=== PATIENT | male | born 1965 | race Caucasian/White ===

== ENCOUNTER 2017-09-09 16:05 | Outpatient (CLI) | payer MEDICARE, OTHER | END 2017-09-09 23:59 | disposition home or self-care (01) | LOC: LAB 16:05 | PROVIDERS: ATTEND Internal Medicine Nephrology | DX: Z01.818 Encounter for other preprocedural examination (principal) | CPT/HCPCS: 71010-TC ==

== ENCOUNTER 2017-11-18 00:38 | Inpatient (IN) | payer MEDICARE, MEDICAID ==
[~2017-11-18] VITALS: Ht 182.9 cm; Wt 90.7 kg
--- NOTE | 2017-11-18 01:30 | NUR ---
TO BED 5 A 52 YO MALE PATIENT BIBRA FOR "LOW O2 SATS OF 88% ON ROOM AIR WITH MILD SOB AND COUGH/CONGESTION X 1 DAY. PLACED PATIENT ON O2 CANNULA AT 2LPM VIA NC, KEPT HOB ELEVATED. PLACED ON CARDIAC AND VS MONITORING. COMFORT MEASURES RENDERED.
--- NOTE | 2017-11-18 01:40 | NUR ---
STARTED A SALINE LOCK ON THE LFA G18, BLOOD DRAWN AND SENT TO LAB.
--- NOTE | 2017-11-18 01:50 | NUR ---
TITRATED O2 TO 5LPM VIA NC, PATIENT SATTING NOW AT 95-97%.
[2017-11-18] MEDS ORDERED: ALBUTEROL FS 2.5 MG/3 ML VIAL.NEB NEB ONE (02:00)
[2017-11-18 02:08] LABS: BASOPHILS % (AUTO) 0.3 % (0.0-2.0); EOSINOPHILS % (AUTO) 0.1 % (0.0-6.0); HEMATOCRIT 30 % (39-51); HEMOGLOBIN 10.6 g/dL (13.5-17.5); LYMPHOCYTES # (AUTO) 0.6 /CMM (0.8-4.8); LYMPHOCYTES % (AUTO) 13.8 % (20.0-44.0); MEAN CORPUSCULAR HEMOGLOBIN 32 PG (26.0-33.0); MEAN CORPUSCULAR HGB CONC 35 g/dl (31.0-36.0); MEAN CORPUSCULAR VOLUME 93 fL (80-96); MONOCYTES # (AUTO) 0.4 /CMM (0.1-1.30); MONOCYTES % (AUTO) 7.9 % (2.0-12.0); NEUTROPHILS # (AUTO) 3.6 /CMM (1.8-8.9); NEUTROPHILS % (AUTO) 77.9 % (43.0-81.0); PLATELET COUNT (AUTO) 83 /CMM (150-450); RED BLOOD CELL COUNT(AUTO) 3.28 MIL/uL (4.5-6.0); WHITE BLOOD COUNT (AUTO) 4.6 K/uL (4.3-11.0)
[2017-11-18] MEDS ORDERED: ALBUTEROL FS 2.5 MG/3 ML VIAL.NEB ONE (02:17)
--- NOTE | 2017-11-18 02:20 | NUR ---
ONGOING BREATHING TREATMENT BY RT CASSIDY.
[2017-11-18 02:22] LABS: CALCIUM, SERUM 7.7 mg/dL (8.5-10.1); CREATININE 6.4 mg/dL (0.6-1.3); POTASSIUM 5.8 mmol/L (3.5-5.1)
[2017-11-18 02:29] LABS: TROPONIN I 0.033 ng/mL (0.00-0.056)
[2017-11-18 02:31] LABS: LYMPHOCYTES % (MANUAL) 15 % (16-48); MONOCYTES % (MANUAL) 9 % (0-11.0); NEUTROPHILS % (MANUAL) 76 (42-76)
[2017-11-18] MEDS ORDERED: AZTREONAM 1 G in IV NS 0.9% 100 ML IV ONE ×2 (03:00→20:00)
[2017-11-18] MEDS ORDERED: LEVOFLOXACIN 750 MG /D5W 150ML PIGGYBACK IV ONE (03:00)
--- NOTE | 2017-11-18 03:10 | NUR ---
PERFORMED STRAIGHT CATH ON PATIENT ASEPTICALLY PER DR OMALLEY'S ORDER FOR URINE COLLECTION, DRAINED ABOUT 800 CC OF SULAIMAN COLORED CLOUDY URINE. SAMPLE SENT TO LAB.
[2017-11-18] MEDS ORDERED: AZTREONAM 1 G VIAL ONE (03:14)
[2017-11-18 03:43] LABS: APPEARANCE,URINE SL CLOUDY (CLEAR); BILIRUBIN,URINE NEGATIVE (NEGATIVE); BLOOD, URINE 3+ Ery/uL (NEGATIVE); COLOR,URINE YELLOW (YELLOW); KETONES,URINE NEGATIVE (NEGATIVE); LEUKOCYTE ESTERASE ,URINE 3+ (NEGATIVE); NITRITE, URINE NEGATIVE (NEGATIVE); PH,URINE 6.5 (5.0-8.0); PROTEIN,URINE 2+ mg/dl (NEGATIVE); UGLUCOSE NEGATIVE (NEGATIVE); UROBILINOGEN,URINE 0.2 EU/dL (0.2)
[2017-11-18 03:52] LABS: BACTERIA,URINE Many /HPF (None Seen); SQUAMOUS EPITHELIAL CELL,UR Few /HPF (None Seen); WBC,URINE TOO NUMEROUS TO COUN /HPF (0-3)
--- NOTE | 2017-11-18 03:52 | NUR ---
CALLED CERTIFIED NURSING ATTENDANT FOR TELE BED. WAS INFORMED TELE IS FULL.
[2017-11-18] MEDS ORDERED: Z GUARD REMEDY 2 OZ OINT TP PRN (04:00)
[2017-11-18] MEDS ORDERED: ZOLPIDEM TARTRATE 5 MG TABLET PO PRN (04:00)
[2017-11-18] MEDS ORDERED: SODIUM POLYSTYRENE SULFONATE 15 G/60 ML BOTTLE PO ONE (04:00)
[2017-11-18] MEDS ORDERED: ALBUTEROL FS 2.5 MG/0.5 ML VIAL.NEB NEB PRN (04:00)
[2017-11-18] MEDS ORDERED: ONDANSETRON HCL/PF 4 MG/2 ML VIAL IVP PRN (04:00)
[2017-11-18] MEDS ORDERED: MAG HYDROX/AL HYDROX/SIMETH 30 ML UDC PO PRN (04:00)
[2017-11-18] MEDS ORDERED: HYDROCODONE/APAP 10/325MG 1 EA TABLET PO PRN (04:00)
[2017-11-18] MEDS ORDERED: FUROSEMIDE 40 MG/4 ML VIAL IV ONE (04:00)
[2017-11-18] MEDS ORDERED: HYDROCODONE/APAP 5/325MG 1 EACH TABLET PO PRN (04:00)
[2017-11-18] MEDS ORDERED: MAGNESIUM HYDROXIDE 30 ML UDC PO PRN (04:00)
[2017-11-18] MEDS ORDERED: ACETAMINOPHEN 325 MG TABLET PO PRN (04:00)
[2017-11-18] MEDS ORDERED: LEVOFLOXACIN 750 MG /D5W 150ML 150 ML IV ONE (04:26)
[2017-11-18] MEDS ORDERED: FUROSEMIDE 40 MG/4 ML VIAL ONE (04:28)
[2017-11-18] MEDS ORDERED: hydrALAZINE HCL IV 20 MG VIAL ONE (05:31)
[2017-11-18] MEDS: hydrALAZINE HCL IV 20 MG VIAL IV PRN (05:35)
[2017-11-18] MEDS ORDERED: PRED5DRO16 RIGHTEYE (05:51)
[2017-11-18] MEDS ORDERED: LOPE2CAP40 PO (05:51)
[2017-11-18] MEDS ORDERED: GABA-532 PO (05:51)
[2017-11-18] MEDS ORDERED: CALC300T4 PO (05:51)
[2017-11-18] MEDS ORDERED: BISA-79 PO (05:51)
[2017-11-18] MEDS ORDERED: LISI10TA59 PO (05:51)
[2017-11-18] MEDS ORDERED: ZINC220T PO (05:51)
[2017-11-18] MEDS ORDERED: VENL75TA4 PO (05:51)
[2017-11-18] MEDS ORDERED: ASCO500C18 PO (05:51)
[2017-11-18] MEDS ORDERED: NA P133E RC (05:51)
[2017-11-18] MEDS ORDERED: NIFE60TA2 PO (05:51)
[2017-11-18] MEDS ORDERED: SODIUM POLYSTYRENE SULFONATE 15 G/60 ML BOTTLE ONE (06:21)
--- NOTE | 2017-11-18 06:37 | NUR ---
320-1 AFTER CHANGE OF SHIFT
--- NOTE | 2017-11-18 07:28 | NUR ---
REPORT GIVEN TO DARLEEN BEARD FOR RHETT.
--- NOTE | 2017-11-18 09:00 | NUR ---
Food tray served at
--- NOTE | 2017-11-18 12:15 | NUR ---
REPORT GIVEN TO EDITH BEARD FOR RHETT
[2017-11-18 13:00] VITALS: BP 161/110
--- NOTE | 2017-11-18 13:00 | NUR ---
RN NOTES: PATIENT AOX4. PATIENT ON TELE WITH SR. NONLABORED BREATHING NOTED ON 3L. PATIENT DENIES PAIN. IV SITE 18 GAUGE PATENT AND INTACT. SUBCLAVIAN DIALYSIS ACCESS DRESSING INTACT, NO DISLODGEMENT NOTED. PATIENT REFUSING SKIN ASSESSMENT WELL PICTURES. BENEFITS AND RISKS EXPLAINED. BED IN LOWEST LOCKED POSITION. CALL LIGHT WITHIN REACH.
[2017-11-18] MEDS ORDERED: hydrALAZINE HCL 25 MG TABLET PO PRN (15:00)
[2017-11-18] MEDS ORDERED: DOSE PER PHARMACY (MD SPECIFY MEDICATION) 1 EA XX PRN (15:00)
[2017-11-18] MEDS: NIFEdipine XL 60 MG TAB PO SCH (15:41)
[2017-11-18] MEDS ORDERED: AZTREONAM 1 G in IV NS 0.9% 100 ML IV SCH (17:30)
[2017-11-18] MEDS ORDERED: OSELTAMIVIR PHOSPHATE 75 MG CAPSULE PO SCH (17:30)
[2017-11-18] MEDS: OSELTAMIVIR PHOSPHATE 75 MG CAPSULE PO SCH (18:01)
--- NOTE | 2017-11-18 19:05 | NUR ---
MOTORCYCLE FABRICATOR NOTES: RECEIVED PT AND IS IN SEMI-ROBERTS'S POSITION. PT ON 3LPM VIA NC AND IS TOLERATING WELL. PT IS ON TELE MONITOR. NO S/S OF DISTRESS NOTED AT THIS TIME. CALL LIGHT WITHIN PT'S REACH. BED KEPT IN LOW, LOCKED POSITION, AND SIDE RAILS X 2UP. WILL CONTINUE TO MONITOR PT.
--- NOTE | 2017-11-18 19:20 | NUR ---
RN NOTES: PATIENT AOX4. PATIENT ON TELE WITH SR. NONLABORED BREATHING NOTED ON 3L. PATIENT DENIES PAIN. IV SITE 18 GAUGE PATENT AND INTACT. SUBCLAVIAN DIALYSIS ACCESS DRESSING INTACT, NO DISLODGEMENT NOTED. PATIENT REFUSING SKIN ASSESSMENT WELL PICTURES. PATIENT REFUSED PRN BREATHING TREATMENT EARLIER STATING HE WANTS TO REST, BENEFITS AND RISKS EXPLAINED TO PATIENT. UPON ADMISSION, CONTACTED [facility] REGARDING ANTIBIOTICS TREATMENT, SPOKE WITH MAHSA ORELLANA. ANTIBIOTICS AND TAMIFLU ORDERED BY DR MILES. PATIENT WISHES TO BE FULL CODE, BENEFITS AND RISKS EXPLAINED. HE VERBALIZED UNDERSTANDING OF WANTING TO BE FULL CODE. BENEFITS AND RISKS EXPLAINED. BED IN LOWEST LOCKED POSITION. CALL LIGHT WITHIN REACH. ENDORSED TO NEXT SHIFT
--- NOTE | 2017-11-18 19:25 | NUR ---
SOCKET PULLER OPENING NOTES: RECEIVED PT AND IS AWAKE. PT IS A/OX3. PT ON 3LPM VIA NC AND IS TOLERATING WELL. PT HAS IV ON L FOREARM #18G AND IS PATENT AND INTACT. CURRENTLY S/L. PT ON TELE BOX. NO S/S OF DISTRESS NOTED AT THIS TIME. CALL LIGHT WITHIN PT'S REACH. BED KEPT IN LOW, LOCKED POSITION, AND SIDE RAILS X 2UP. PT ALSO HAS R SUBCLAVIAN MALIA CATH NOTED. WILL CONTINUE TO MONITOR PT.
[2017-11-18 20:00] VITALS: BP 136/77
[2017-11-18 20:36] VITALS: BP 136/77
[2017-11-18] MEDS: ALBUTEROL HALF STRENGTH 1.25 MG/3 ML VIAL.NEB NEB PRN (20:50)
[2017-11-19] VITALS: BP 128/67
[2017-11-19 04:00] VITALS: BP 125/59
[2017-11-19] MEDS: AZTREONAM 500 MG in IV NS 0.9% 50 ML IV SCH ×3 (04:01→21:02)
[2017-11-19 06:18] VITALS: BP 125/59
--- NOTE | 2017-11-19 07:25 | NUR ---
NANOELECTRONICS ENGINEER CLOSING NOTES: ALL NEEDS WERE ATTENDED AND ANTICIPATED FOR. PT REMAINS ON 3LPM VIA NC AND IS TOLERATING WELL. PT HAS IV ON L FOREARM #18G AND IS PATENT AND INTACT. CURRENTLY S/L. PT ON TELE BOX AND READING SHOWS SR 89. NO S/S OF DISTRESS NOTED AT THIS TIME. CALL LIGHT WITHIN PT'S REACH. BED KEPT IN LOW, LOCKED POSITION, AND SIDE RAILS X 2UP. PT ALSO HAS R SUBCLAVIAN MALIA CATH NOTED. WILL ENDORSE TO AM NURSE FOR RHETT.
[2017-11-19 08:00] VITALS: BP 149/96
--- NOTE | 2017-11-19 08:00 | NUR ---
MS RN RECEIVED ON BED, AWAKE,ALERT,ORIENTED X4,NOT IN ANY FORM OF DISTRESS,RESPIRATIONS EVEN AND UNLABORED,NO SOB NOTED,LUNGS ARE CLEAR, ABDOMEN SOFT,POSITIVE BOWEL SOUNDS,DENIES PAIN AT THIS TIME, WILL MONITOR PATIENT'S CONDITION.
[2017-11-19 08:02] LABS: EOSINOPHILS % (AUTO) 0.2 % (0.0-6.0); HEMATOCRIT 29 % (39-51); HEMOGLOBIN 9.8 g/dL (13.5-17.5); LYMPHOCYTES # (AUTO) 0.5 /CMM (0.8-4.8); LYMPHOCYTES % (AUTO) 7.3 % (20.0-44.0); MEAN CORPUSCULAR HEMOGLOBIN 32 PG (26.0-33.0); MEAN CORPUSCULAR HGB CONC 34 g/dl (31.0-36.0); MEAN CORPUSCULAR VOLUME 95 fL (80-96); MONOCYTES # (AUTO) 0.2 /CMM (0.1-1.30); MONOCYTES % (AUTO) 3.3 % (2.0-12.0); NEUTROPHILS # (AUTO) 6.4 /CMM (1.8-8.9); NEUTROPHILS % (AUTO) 89.2 % (43.0-81.0); PLATELET COUNT (AUTO) 76 /CMM (150-450); RED BLOOD CELL COUNT(AUTO) 3.03 MIL/uL (4.5-6.0); WHITE BLOOD COUNT (AUTO) 7.2 K/uL (4.3-11.0)
[2017-11-19 08:32] LABS: CALCIUM, SERUM 7.7 mg/dL (8.5-10.1); MAGNESIUM 2.1 mg/dL (1.8-2.4); PHOSPHORUS 6.3 mg/dL (2.5-4.9); POTASSIUM 5.9 mmol/L (3.5-5.1)
[2017-11-19] MEDS: NIFEdipine XL 60 MG TAB PO SCH (09:00)
[2017-11-19 09:06] LABS: BAND % (MANUAL) 7 % (0.0-5.0); LYMPHOCYTES % (MANUAL) 8 % (16-48); MONOCYTES % (MANUAL) 5 % (0-11.0); NEUTROPHILS % (MANUAL) 80 (42-76)
[2017-11-19] MEDS: OSELTAMIVIR PHOSPHATE 75 MG CAPSULE PO SCH (09:30)
--- NOTE | 2017-11-19 09:30 | NUR ---
MS KISHA BREAKFAST SERVED, DUE MEDS GIVEN,TOLERATED WELL, HELD B/P MEDS, PT WILL HAVE DIALYSIS TODAY.
[2017-11-19 16:00] VITALS: BP 150/83
--- NOTE | 2017-11-19 16:00 | NUR ---
MS DIETETICS DIRECTOR DONE W/ 2000ML OUTPUT.
--- NOTE | 2017-11-19 18:24 | NUR ---
MS RN ON BED, NO CHANGE OF CONDITION.
[2017-11-19 20:00] VITALS: BP 164/100
--- NOTE | 2017-11-19 21:03 | NUR ---
RN NOTES REFUSED HYDRALAZINE 25 MG PO PRN BP 162/98 82, EXPLAINED TO PATIENT RISKS AND BENEFITS OF RUNNING BP HIGH, PT STILL REFUSED
[2017-11-19] MEDS: ALBUTEROL HALF STRENGTH 1.25 MG/3 ML VIAL.NEB NEB PRN (23:41)
[2017-11-19] MEDS: IPRATROPIUM NEB FS 0.5 MG/2.5 ML AMPUL.NEB NEB PRN (23:41)
[2017-11-20] MEDS: AZTREONAM 500 MG in IV NS 0.9% 50 ML IV SCH ×3 (04:20→20:17)
--- NOTE | 2017-11-20 06:41 | NUR ---
PATIENT IN BED, ALERT AND AWAKE, NO SOB, NO DISTRESS, NO COMPLAIN OF PAIN, NO ADVERSE CHANGE OF CONDITION DURING SHIFT, REPOSITIONED FOR COMFORT, ON CONTACT ISOLATION, ALL DUE MEDICATIONS GIVEN, CALL LIGHT WITHIN REACH.
--- NOTE | 2017-11-20 07:30 | NUR ---
MS RN OPENING NOTES RECEIVED PATIENT IN STABLE CONDITION IN NO APPARENT DISTRESS. PATIENT IS RESTING IN BED. BEDSIDE RAILS ARE UP X 2. BED IS LOCKED AND LOWERED. WILL CONTINUE TO MONITOR.
[2017-11-20 08:00] VITALS: BP 159/99
[2017-11-20] MEDS: IPRATROPIUM NEB FS 0.5 MG/2.5 ML AMPUL.NEB NEB PRN ×4 (09:18→21:41)
[2017-11-20] MEDS: ALBUTEROL HALF STRENGTH 1.25 MG/3 ML VIAL.NEB NEB PRN ×2 (09:18→15:50)
[2017-11-20] MEDS: NIFEdipine XL 60 MG TAB PO SCH (09:27)
[2017-11-20] MEDS: OSELTAMIVIR PHOSPHATE 75 MG CAPSULE PO SCH (09:27)
[2017-11-20 16:00] VITALS: BP 150/90
--- NOTE | 2017-11-20 19:29 | NUR ---
MS RN CLOSING NOTES PATIENT IS RESTING IN BED. BEDSIDE RAILS ARE UP X 2. BED IS LOCKED AND LOWERED. WILL ENDORSE CARE TO ACUTE CARE NURSE NURSE FOR RHETT.
--- NOTE | 2017-11-20 19:45 | NUR ---
MS RN INITIALNOTES PT IS IN BED RESTING, A/O X4 ABLE TO MAKE NEEDS KNOWN. PT IS ON 3L NC, SATING AT 88%, SIMPLE MASK PLACED AND NOW SATING AT 95%. DENIES PAIN AT THIS TIME. IV ACCESS IS INTACT AND PATENT. PRN BREATHING TX NEEDED. BED IS IN LOW AND LOCKED POSITION, CALL LIGHT WITHIN REACH. WILL CONTINUE TO MONITOR PT.
[2017-11-20 21:53] VITALS: BP 124/74
--- NOTE | 2017-11-20 23:49 | NUR ---
ENDORSED PT TO TAMARA BEARD FOR RHETT. PT IS STABLE WITH NO ACUTE CHANGES
[2017-11-21] MEDS: IPRATROPIUM NEB FS 0.5 MG/2.5 ML AMPUL.NEB NEB PRN ×4 (00:34→15:53)
[2017-11-21] MEDS: ALBUTEROL HALF STRENGTH 1.25 MG/3 ML VIAL.NEB NEB PRN ×4 (00:35→15:53)
--- NOTE | 2017-11-21 02:54 | NUR ---
PT WAS ENDORSED BACK TO ME FOR RHETT
--- NOTE | 2017-11-21 03:00 | NUR ---
Patient c/o earlier that he had call and the light was not answered.I was going back and fort working on my admission and did not see any light,and the office secretary said she did not see any light.Patient needs got taken care off.
[2017-11-21] MEDS: AZTREONAM 500 MG in IV NS 0.9% 50 ML IV SCH ×3 (04:09→22:09)
--- NOTE | 2017-11-21 06:17 | NUR ---
MS RN CLOSING NOTES PT IS IN BED SLEEPING, EASILY AROUSED. BREATHING EVENLY AND UNLABORED ON NC. SCHEDULED FOR HEMODIALYSIS TODAY. ALL DUE MEDS GIVEN. ALL NEEDS WERE ANTICIPATED AND MET. BED IS IN LOW AND LOCKED POSITION, CALL LIGHT WITHIN REACH. WILL ENDORSE TO DAYSHIFT
[2017-11-21 08:00] VITALS: BP 151/96
--- NOTE | 2017-11-21 08:34 | NUR ---
MS RN OPENING NOTES. PT RECEIVED A&0X3 RESTING IN BED AND EASILY WOKEN. PT WITH O2 VIA NC 4L/PM AND SAO2 96%, PT REPORT SOB AND AUSCULTATED CONGESTED WITH RHONCHI, ESPECIALLY R SIDE. PRN RT ORDERED. PT WITH IVC G#18 AT L WRSIT INTACT AND SALINE FLUSH PATENT. PT REPORTING NO PAIN. PT FOR DIALYSIS TODAY. BED IN LOWEST LOCKED POSITION WITH HANDRAILSX2 AND CALL CERVANTES WITHIN REACH. PT BRIEFED ON TODAY'S POC AND IS WITHOUT CONCERN OR COMPLAINT AT THIS TIME.
[2017-11-21] MEDS: NIFEdipine XL 60 MG TAB PO SCH (09:00)
[2017-11-21] MEDS: OSELTAMIVIR PHOSPHATE 75 MG CAPSULE PO SCH (11:13)
[2017-11-21 11:30] LABS: EOSINOPHILS % (AUTO) 0.2 % (0.0-6.0); HEMATOCRIT 27 % (39-51); LYMPHOCYTES # (AUTO) 0.4 /CMM (0.8-4.8); LYMPHOCYTES % (AUTO) 4.9 % (20.0-44.0); MEAN CORPUSCULAR HEMOGLOBIN 32 PG (26.0-33.0); MEAN CORPUSCULAR HGB CONC 34 g/dl (31.0-36.0); MEAN CORPUSCULAR VOLUME 94 fL (80-96); MONOCYTES # (AUTO) 0.4 /CMM (0.1-1.30); MONOCYTES % (AUTO) 5.5 % (2.0-12.0); NEUTROPHILS # (AUTO) 7.2 /CMM (1.8-8.9); NEUTROPHILS % (AUTO) 89.4 % (43.0-81.0); PLATELET COUNT (AUTO) 82 /CMM (150-450); RED BLOOD CELL COUNT(AUTO) 2.82 MIL/uL (4.5-6.0)
[2017-11-21 11:45] LABS: CALCIUM, SERUM 7.6 mg/dL (8.5-10.1); CREATININE 6.5 mg/dL (0.6-1.3); POTASSIUM 5.2 mmol/L (3.5-5.1)
[2017-11-21 12:17] LABS: LYMPHOCYTES % (MANUAL) 7 % (16-48); MONOCYTES % (MANUAL) 7 % (0-11.0); NEUTROPHILS % (MANUAL) 86 (42-76)
[2017-11-21 16:00] VITALS: BP 153/93
--- NOTE | 2017-11-21 18:01 | NUR ---
MS RN OPENING NOTES. PT WITH DROPLET PRECAUTIONS R/T: INFLUENZA. PT A&0X3 RESTING WHILST EATING. PT WITH O2 VIA NC AT 3L/PM AND SAO2 94%, PT REPORTS SOME SOB. PT REPORTING NO PAIN. PT WAITING FOR DIALYSIS. PT WITH IVC G#18 AT L WRIST INTACT AND OPERATIONAL. BED IN LOWEST LOCKED POSITION WITH HANDRAILSX2 AND CALL CERVANTES WITHIN REACH. ALL DAY NURSE DUTIES ATTENDED TO, PT IS WITHOUT CONCERN OR COMPLAINT AT THIS TIME, WILL ENDORSE TO NIGHT NURSE.
--- NOTE | 2017-11-21 19:30 | NUR ---
Received patient in the bed.No unusual signs or symptoms observed or reported,no signs of discomfort or distress,receiving dialysis-no problems.
[2017-11-21 20:00] VITALS: BP 156/84
--- NOTE | 2017-11-21 20:00 | NUR ---
Dialysis completed,no problems.Patient states he wants to be left alone.
--- NOTE | 2017-11-21 23:00 | NUR ---
Resting quietly,no problems
[2017-11-22] MEDS: AZTREONAM 500 MG in IV NS 0.9% 50 ML IV SCH ×3 (05:59→21:48)
--- NOTE | 2017-11-22 07:38 | NUR ---
MS RN OPENING NOTES. PT WITH DROPLET PRECS R/T: INFLUENZA PT RECEIVED A&0X3 AWAKE AND RESTING IN BED. PT WITH O2 VIA NC AT 3LPM, REPORTING SOB AND LUNGS AUSCULTATED CONGESTED WITH RHONCHI. PT REQUESTING PRN RT, ORDER PLACED. PT WITH IVC AT L AC INTACT AND OPERATIONAL. PT REPORTING NO PAIN. PT WITH SOME JANET ORBITAL EDEMA NOTED, WILL INFORM MD. BED IN LOWEST LOCKED POSITION WITH HANDRAILSX3 AND CALL CERVANTES WITHIN REACH. PT BRIEFED ON TODAY'S POC AND IS WITHOUT CONCERN OR COMPLIANT AT THIS TIME.
[2017-11-22 08:00] VITALS: BP 180/110
[2017-11-22] MEDS: NIFEdipine XL 60 MG TAB PO SCH (08:16)
[2017-11-22] MEDS: OSELTAMIVIR PHOSPHATE 75 MG CAPSULE PO SCH (08:46)
[2017-11-22] MEDS ORDERED: VANCOMYCIN 500 MG in IV D5W 100 ML IV PRN (09:00)
[2017-11-22] MEDS ORDERED: VANCOMYCIN 1 GM in IV D5W 250 ML IV ONE (09:00)
[2017-11-22] MEDS ORDERED: FEE PK DOSING 1 MIN EA MC ONE (09:03)
[2017-11-22] MEDS: IPRATROPIUM NEB FS 0.5 MG/2.5 ML AMPUL.NEB NEB PRN (09:35)
[2017-11-22] MEDS: ALBUTEROL HALF STRENGTH 1.25 MG/3 ML VIAL.NEB NEB PRN (09:35)
[2017-11-22] MEDS: methylPREDNISolone SOD SUCC 125 MG/2ML VIAL IV SCH ×2 (12:55→17:38)
--- NOTE | 2017-11-22 13:00 | NUR ---
RN NOTES. DIALYSIS REMOVES 5.5L. PT BP REMAINS HIGH. PT REFUSING PRN BP MEDICATIONS, HE REPORTS HIS BP IS NORMALLY HIGH AFTER DIALYSIS LOWERS OVER AN HOUR OR TO. WILL CONTINE TO MONITOR.
--- NOTE | 2017-11-22 14:56 | NUR ---
RN NOTES. 0900 [facility] HELD R/T DIALYSIS THIS AM
[2017-11-22 16:00] VITALS: BP 121/65
--- NOTE | 2017-11-22 17:54 | NUR ---
MS RN CLOSING NOTES. PT WITH DROPLET PRECS R/T: INFLUENZA PT A&0X3 WATCHING T.V WITH DINNER. PT WITH O2 VIA SIMPLE MASK AT 4LPM, CURRENTLY NOT REPORTING SOB. PT WITH IVC AT L AC INTACT AND OPERATIONAL TKO. PT REPORTING NO PAIN. PT'S JANET ORBITAL EDEMA REMAINS BUT SIGNIFICANTLY LESS PRONOUNCED. BED IN LOWEST LOCKED POSITION WITH HANDRAILSX3 AND CALL CERVANTES WITHIN REACH. ALL DAY NURSE DUTIES ATTENDED TO, PT IS WITHOUT CONCERN OR COMPLIANT AT THIS TIME, WILL ENDORSE TO NIGHT NURSE.
--- NOTE | 2017-11-22 19:35 | NUR ---
MS RN OPENING NOTES RECEIVED PT AWAKE,ALERT,VERBALLY RESPONSIVE. ON SIMPLE MASK AT 4L/MIN,NO COMPLAIN OF SOB NOTED.RESPIRATIONS EVEN,UNLABORED.IV SITE LT AC INTACT,PATENT. DENIES ANY PAIN OR DISCOMFORT AT THIS TIME. KEPT CLEAN AND COMFORTABLE,BED IN LOWEST POSITION,LOCKED.CALL LIGHT WITHIN REACH.WILL CONTINUE TO MONITOR ACCORDINGLY.
[2017-11-22] MEDS: ALBUTEROL HALF STRENGTH 1.25 MG/3 ML VIAL.NEB NEB SCH ×2 (19:55→23:53)
[2017-11-22] MEDS: IPRATROPIUM NEB FS 0.5 MG/2.5 ML AMPUL.NEB NEB SCH ×2 (19:56→23:53)
[2017-11-22 20:37] VITALS: BP 118/69
[2017-11-22 22:00] VITALS: BP 118/69
[2017-11-22] MEDS: CEFEPIME 1 GM in IV D5W 50 ML IV SCH (22:01)
[2017-11-23] MEDS: IPRATROPIUM NEB FS 0.5 MG/2.5 ML AMPUL.NEB NEB SCH ×6 (03:52→23:30)
[2017-11-23] MEDS: ALBUTEROL HALF STRENGTH 1.25 MG/3 ML VIAL.NEB NEB SCH ×6 (03:52→23:30)
[2017-11-23] MEDS: AZTREONAM 500 MG in IV NS 0.9% 50 ML IV SCH ×2 (04:42→13:41)
--- NOTE | 2017-11-23 06:56 | NUR ---
MS RN NOTES PT IN BED ASLEEP, ON O2 VIA SIMPLE MASK AT 4L/MIN, NO RESPIRATORY DISTRESS NOTED, MONITORED CLOSELY. IV SITE PATENT. CALL LIGHT WITHIN REACH.NO S/SX OF PAIN OR DISCOMFORT NOTED WILL CONTINUE TO MONITOR ACCORDINGLY
--- NOTE | 2017-11-23 07:35 | NUR ---
RN OPENING NOTES RECEIVED PATIENT AWAKE,A/OX3,VERBALLY RESPONSIVE. ON SIMPLE MASK AT 4L/MIN,NO ACUTE DISTRESS, NO SOB NOTED. DENIES PAIN OR DISCOMFORT. IV SITE ON LEFT AC INTACT AND PATENT. KEPT CLEAN AND COMFORTABLE,BED IN LOWEST POSITION,LOCKED.CALL LIGHT WITHIN REACH. WILL CONTINUE TO MONITOR ACCORDINGLY.
[2017-11-23 07:58] VITALS: BP 118/74
[2017-11-23 08:00] VITALS: BP 118/74
[2017-11-23] MEDS: NIFEdipine XL 60 MG TAB PO SCH (08:26)
[2017-11-23] MEDS: OSELTAMIVIR PHOSPHATE 75 MG CAPSULE PO SCH (08:26)
[2017-11-23] MEDS: methylPREDNISolone SOD SUCC 125 MG/2ML VIAL IV SCH ×2 (08:27→16:46)
[2017-11-23 16:00] VITALS: BP 118/74
[2017-11-23] MEDS: LEVOFLOXACIN (250MG) 250 MG TABLET PO SCH (16:46)
--- NOTE | 2017-11-23 19:00 | NUR ---
RN NOTES UNABLE TO GET SPUTUM COLLECTION FOR RESP CULTURE. PATIENT UNABLE TO COUGH UP SPUTUM. PATIENT REFUSED RT TO COLLECT SPUTUM
--- NOTE | 2017-11-23 19:20 | NUR ---
RN CLOSING NOTES PATIENT IN BED RESTING. NO ACUTE DISTRESS, NO SOB NOTED. NO S/S OF PAIN OR DISCOMFORT. ALL NEEDS ATTENDED AND PROVIDED. BED IN LOCKED, LOW POSITION, CALL LIGHT IN REACH. ENDORSED TO NIGHT RN FOR RHETT.
--- NOTE | 2017-11-23 19:21 | NUR ---
RN NOTES RECEIVED PT AWAKE, HOB ELEVATED, DENIES ANY PAIN AND DISCOMFORT. DENIES NAUSEA AND VOMITING. BREATHING REGULAR AND UNLABORED. IV ACCESS ON LEFT FORE ARM PATENT AND INTACT. SAFETY MEASURE AND FALL PRECAUTION OBSERVED. PLAN OF CARE DISCUSSED WITH THE PT. WILL CONTINUE TO MONITOR PT.
[2017-11-23 20:00] VITALS: BP 131/76
[2017-11-23] MEDS: CEFEPIME 1 GM in IV D5W 50 ML IV SCH (20:45)
[2017-11-23 22:00] VITALS: BP 131/76
[2017-11-24] MEDS: ALBUTEROL HALF STRENGTH 1.25 MG/3 ML VIAL.NEB NEB SCH ×6 (03:28→23:31)
[2017-11-24] MEDS: IPRATROPIUM NEB FS 0.5 MG/2.5 ML AMPUL.NEB NEB SCH ×6 (03:28→23:31)
--- NOTE | 2017-11-24 07:20 | NUR ---
RN OPENING NOTES RECEIVED PATIENT AWAKE,A/OX3,VERBALLY RESPONSIVE. NO ACUTE DISTRESS, NO SOB NOTED. DENIES PAIN OR DISCOMFORT. IV SITE INTACT AND PATENT. KEPT CLEAN AND COMFORTABLE. BED IN LOWEST POSITION,LOCKED.CALL LIGHT WITHIN REACH. WILL CONTINUE TO MONITOR ACCORDINGLY.
--- NOTE | 2017-11-24 07:30 | NUR ---
RN NOTES PT SLEEP WELL OVERNIGHT. VITAL SIGNS STABLE, AFEBRILE. DENIES ANY PAIN AND DISCOMFORT. NO EPISODE OF NAUSEA AND VOMITING. KEPT CLEAN AND DRY, ALL NEEDS ATTENDED. WILL CONTINUE TO MONITOR PT.
[2017-11-24 08:00] VITALS: BP 170/80
--- NOTE | 2017-11-24 08:45 | NUR ---
RN NOTES PATIENT'S BP HIGH, REFUSING PRN BP MEDICATIONS. EDUCATION GIVEN BUT STILL REFUSED TO TAKE PRN BP MEDS.
[2017-11-24 09:36] LABS: ABG BASE EXCESS -3.2 mmol/L; ABG OXYGEN SATURATION 95.6 % (92.0-98.5); ABG PH 7.374 (7.350-7.450); ABG PO2 93.6 mmHg (75.0-100.0); AaDO2 90.1 mmHg; COHb 0.8 % (0.5-1.5); MetHb 0.2 % (0.0-1.5); O2Hb 94.6 % (94.0-97.0); SITE, ABG Right Radial; VENT MODE, BG N/C
[2017-11-24] MEDS: methylPREDNISolone SOD SUCC 125 MG/2ML VIAL IV SCH ×2 (09:37→17:42)
[2017-11-24] MEDS: OSELTAMIVIR PHOSPHATE 75 MG CAPSULE PO SCH (09:38)
[2017-11-24] MEDS: NIFEdipine XL 60 MG TAB PO SCH (09:39)
[2017-11-24 16:00] VITALS: BP 171/89
--- NOTE | 2017-11-24 16:00 | NUR ---
RN NOTES PATIENT'S BP HIGH, REFUSING PRN BP MEDICATIONS. EDUCATION GIVEN BUT STILL REFUSED TO TAKE PRN BP MEDS.
[2017-11-24] MEDS ORDERED: VANCOMYCIN 1 GM in IV D5W 250 ML IV ONE (17:00)
[2017-11-24] MEDS: LACTOBACILLUS RHAMNOSUS GG 1 EACH CAP.SPRINK PO SCH (17:42)
[2017-11-24] MEDS: LEVOFLOXACIN (250MG) 250 MG TABLET PO SCH (17:42)
--- NOTE | 2017-11-24 18:00 | NUR ---
RN NOTES DIALYSIS STARTED. WILL CONTINUE TO MONITOR ACCORDINGLY.
--- NOTE | 2017-11-24 19:28 | NUR ---
RN CLOSING NOTES PATIENT ON DIALYSIS. NO ACUTE DISTRESS, NO SOB NOTED. DENIES PAIN OR DISCOMFORT. ALL NEEDS ATTENDED AND PROVIDED. BED IN LOCKED, LOW POSITION, SIDERAILS UPX2. CALL LIGHT IN REACH. ENDORSED TO NIGHT RN FOR RHETT.
[2017-11-24 20:00] VITALS: BP_SYST 112; BP_SYST 150; BP_DIAS 52; BP_DIAS 79
[2017-11-24] MEDS: CEFEPIME 1 GM in IV D5W 50 ML IV SCH (21:16)
[2017-11-25] MEDS: IPRATROPIUM NEB FS 0.5 MG/2.5 ML AMPUL.NEB NEB SCH ×6 (03:30→23:56)
[2017-11-25] MEDS: ALBUTEROL HALF STRENGTH 1.25 MG/3 ML VIAL.NEB NEB SCH ×6 (03:30→23:56)
--- NOTE | 2017-11-25 03:35 | NUR ---
RT PT REQUESTED TO LET HIM SLEEP. NO SOB OR RESP DISTRESS NOTED AT THIS TIME.
--- NOTE | 2017-11-25 05:47 | NUR ---
RN CLOSING NOTES PATIENT IN BED RESTING. NO SOB. NO ACUTE DISTRESS. RESPIRATION EVEN AND UNLABORED. NO S/S OF PAIN OR DISCOMFORT AT THIS TIME. ALL NEEDS ATTENDED AND PROVIDED. BED IN LOCKED, LOW POSITION, CALL LIGHT WITHIN REACH. ENDORSED TO NEXT SHIFT NURSE FOR RHETT.
[2017-11-25] MEDS: NIFEdipine XL 60 MG TAB PO SCH (08:52)
[2017-11-25] MEDS: methylPREDNISolone SOD SUCC 125 MG/2ML VIAL IV SCH ×2 (08:55→17:01)
[2017-11-25] MEDS: LACTOBACILLUS RHAMNOSUS GG 1 EACH CAP.SPRINK PO SCH ×2 (08:55→17:00)
--- NOTE | 2017-11-25 09:00 | NUR ---
RN NOTES PATIENT ALERT AND ORIENTED X3, NO DISTRESS NOTED, DENIES PAIN OR DISCOMFORT, PER PATIENT I JUST WANT TO BE LEFT ALONE BECAUSE I WANT TO SLEEP. NEEDS ATTENDED AND MET, CALL LIGHT WITHIN REACH, WILL CONTINUE TO MONITOR.
[2017-11-25] MEDS: MENTHOL/CETYLPYRD (CEPACOL) 1 LOZ LOZENGE PO PRN ×2 (14:32→22:08)
[2017-11-25 16:00] VITALS: BP 197/128
[2017-11-25] MEDS: hydrALAZINE HCL IV 20 MG VIAL IV PRN (17:00)
[2017-11-25] MEDS: LEVOFLOXACIN (250MG) 250 MG TABLET PO SCH (17:00)
--- NOTE | 2017-11-25 17:00 | NUR ---
RN NOTES PATIENT'S BP NOTED TO BE 197/128, HR 95, O2SAT 87% IN ROOM AIR, PLACED ON 2LPM VIA NC WITH SPO2 INCREASED TO 95%. PATIENT IS C/O CHEST TIGHTNESS. PER PATIENT HE INFORMED DR. MILES AND DR. SOLIS. PATIENT IS GIVEN HYDRALAZINE IV FOR BP > 160. PATIENT IS PLACED ON TELE MONITOR WHICH SHOWS SR 95. NO ADVERSE EFFECT NOTED. WILL CONTINUE TO CLOSELY MONITOR THE PATIENT.
[2017-11-25] MEDS ORDERED: VANCOMYCIN 1 GM in IV D5W 250 ML IV ONE (17:10)
--- NOTE | 2017-11-25 17:44 | NUR ---
RN NOTES PATIENT'S BP IMPROVED TO 176/106 HR 95, ADMINISTERED NORCO FOR PAIN. PATIENT EATING DINNER AND TOLERATING WELL. NO S/SX OF RESPIRATORY DISTRESS. NEEDS ATTENDED AND MET, CALL LIGHT WITHIN REACH, WILL CONTINUE TO MONITOR.
--- NOTE | 2017-11-25 18:20 | NUR ---
RN NOTES PAGED DR. MILES AND RELAYED PATIENT'S CONDITION. LATEST BP IS 170/108 AT 1800. HR 95. SPO2 96% ON 2LPM VIA NC. INFORMED MD, AMBULANCE IS ON-CALL FOR DISCHARGE. RECEIVED NEW ORDERS FOR STAT EKG, STAT TROPONIN AND TO GIVE METOPROLOL 25MG PO ONCE NOW, AND TO START PATIENT METOPROLOL 25MG BID. PATIENT VERBALIZES, CHEST TIGHTNESS IS BETTER. AND DENIES SOB AT THIS TIME. WILL CONTINUE TO CLOSELY MONITOR PATIENT. CALLED RT AND INFORMED OF STAT EKG.
[2017-11-25] MEDS ORDERED: METOPROLOL TARTRATE 25 MG TABLET PO ONE (18:30)
--- NOTE | 2017-11-25 19:23 | NUR ---
RN NOTES PATIENT ALERT AND ORIENTED X3, NO DISTRESS NOTED, DENIES FEELING CHEST PAIN OR TIGHTNESS, NO SOB NOTED, ON ROOM AIR WITH SPO2 OF 91%, PATIENT TOLERATED DINNER, BP RECHECKED AND SHOWS 180/100, STILL WAITING FOR STAT EKG AND STAT TROPONIN, RT AND LABS AWARE OF STAT ORDERS. PATIENT ASSISTED WITH TURNING AND REPOSITION EVERY 2 HOURS, SKIN CARE RENDERED, ALL NEEDS ATTENDED AND MET, CALL LIGHT WITHIN REACH. ENDORSED TO ACCOUNT SUPPORT MANAGER RN, TO CALL DR. MILES ONCE RESULTS ARE BACK, AND AMBULANCE IS PLACED BALL ASSEMBLER.
--- NOTE | 2017-11-25 19:35 | NUR ---
IDENTIFICATION OFFICER INITIAL NOTES PT IS RESTING IN BED, A/O X4 ABLE TO MAKE NEEDS KNOWN. NO SIGNS OF SOB OR DISTRESS, BREATHING EVENLY AND UNLABORED. DENIES PAIN AT THIS TIME. BP WAS NOTED TO BE HIGH, MADE AWARE TO MD AWAITING STAT EKG AND TROPONIN LEVELS TO BE DRAWN. BP WAS PLANNED FOR D/C TODAY THEREFORE DIALYSIS WAS HELD AND TRANSFER WILL BE HELD DUE TO HIGH BP. BED IS IN LOW AND LOCKED POSITION, CALL LIGHT WITHIN REACH. WILL CONTINUE TO MONITOR PT
[2017-11-25 20:00] VITALS: BP 181/112
[2017-11-25] MEDS ORDERED: METOPROLOL TARTRATE 25 MG TABLET PO SCH (21:00)
[2017-11-25] MEDS: CEFEPIME 1 GM in IV D5W 50 ML IV SCH (21:22)
[2017-11-25] MEDS ORDERED: METOPROLOL TARTRATE 50 MG TABLET ONE (23:05)
[2017-11-25] MEDS: METOPROLOL TARTRATE 50 MG TABLET PO SCH (23:10)
[2017-11-26] VITALS: BP 186/117
[2017-11-26] MEDS: MENTHOL/CETYLPYRD (CEPACOL) 1 LOZ LOZENGE PO PRN ×3 (02:03→17:35)
[2017-11-26] MEDS: ALBUTEROL HALF STRENGTH 1.25 MG/3 ML VIAL.NEB NEB SCH ×5 (03:30→19:23)
[2017-11-26] MEDS: IPRATROPIUM NEB FS 0.5 MG/2.5 ML AMPUL.NEB NEB SCH ×5 (03:30→19:23)
[2017-11-26 04:00] VITALS: BP 182/118
[2017-11-26] MEDS: hydrALAZINE HCL IV 20 MG VIAL IV PRN ×2 (04:48→15:34)
--- NOTE | 2017-11-26 06:50 | NUR ---
YARDER ENGINEER NOTES RESULTS REPORTED TO MD MERINO, ORDERS FOR METOPROLOL DOSAGE ADJUSTMENT WITH FIRST DOSE NOW WAS ENTERED WAS HIGH BP. WILL CARRY OUT ORDERS. WILL CONTINUE TO MONITOR PT
--- NOTE | 2017-11-26 06:52 | NUR ---
TELE CLOSING NOTES PT IS IN BED RESTING. NO SIGNS OF SOB OR DISTRESS, BREATHING EVENLY AND UNLABORED. DENIES PAIN AT THIS TIME. CHARGE NURSE SPOKE WITH DIALYSIS NURSE DOWNSTAIRS TO ENDORSE THE NEED FOR HD. ALL NEEDS WERE ANTICIPATED AND MET. BED IS IN LOW AND LOCKED POSITION, CALL LIGHT WITHIN REACH. WILL ENDORSE TO DAYSHIFT.
--- NOTE | 2017-11-26 07:44 | NUR ---
MS RN: INITIAL NOTE RECEIVED PT A/OX3. ON MS. TELE OBSERVATION DUE TO HIGH BP. DIALYSIS TO BE DONE TODAY. USES DIAPER/ URINAL. ON REGULAR DIET. LFA #22 SL. NO IV FLUIDS. PATENT. R CHEST HD CATH. DRESSING INTACT. NO DISTRESS NOTED. ON 2L NC SATING T 95%. RESTING COMFORTABLY IN BED. CALL LIGHT WITHIN REACH. Addendum: 11/26/17 at 0747 by ASAF DE PAZ RN WRONG PATIENT
--- NOTE | 2017-11-26 07:48 | NUR ---
MS RN: INITIAL NOTE RECEIVED PT A/OX3. ON MS. TELE OBSERVATION DUE TO HIGH BP. DIALYSIS TO BE DONE TODAY. USES DIAPER/ URINAL. ON REGULAR DIET. LFA #22 SL. NO IV FLUIDS. PATENT. R CHEST HD CATH. DRESSING INTACT. NO DISTRESS NOTED. ON 2L NC SATING T 95%. RESTING COMFORTABLY IN BED. CALL LIGHT WITHIN REACH.
[2017-11-26 08:00] VITALS: BP 180/117
[2017-11-26] MEDS: LACTOBACILLUS RHAMNOSUS GG 1 EACH CAP.SPRINK PO SCH ×2 (08:40→16:54)
[2017-11-26] MEDS: methylPREDNISolone SOD SUCC 125 MG/2ML VIAL IV SCH ×2 (08:40→16:54)
--- NOTE | 2017-11-26 08:40 | NUR ---
[facility] DUE TO DIALYSIS BEING DONE.
--- NOTE | 2017-11-26 11:15 | NUR ---
PT NOT AVAILABLE FOR BREATHING TX.
[2017-11-26] MEDS: NIFEdipine XL 60 MG TAB PO SCH (11:19)
[2017-11-26] MEDS: METOPROLOL TARTRATE 50 MG TABLET PO SCH ×2 (11:20→21:42)
[2017-11-26] MEDS: hydrALAZINE HCL 25 MG TABLET PO SCH ×2 (11:20→18:00)
[2017-11-26] MEDS ORDERED: VANCOMYCIN 1 GM in IV D5W 250 ML IV ONE (11:30)
--- NOTE | 2017-11-26 12:22 | NUR ---
DIALYSIS DONE. OUTPUT 4L. BP 160/86, PULSE 82 POST HD. ADMINISTERED BLOOD PRESSURE MEDICATIONS ORDERED. MORNING BP MEDS ADMINISTERED.
--- NOTE | 2017-11-26 15:55 | NUR ---
INFORMED MD VALENCIA ABOUT HIGH BP OF 192/117. PT ASYMPTOMATIC. ADMINISTERED IV HYDRALAZINE PRN. NO NEW ORDERS. TO CONTINUE TO MONITOR. PT REFUSED TELE BOX FOR OBSERVATION.
[2017-11-26 16:00] VITALS: BP 111/64
[2017-11-26] MEDS: LEVOFLOXACIN (250MG) 250 MG TABLET PO SCH (16:54)
--- NOTE | 2017-11-26 16:58 | NUR ---
BP REDUCED TO 115/80. PULSE 70
--- NOTE | 2017-11-26 17:30 | NUR ---
CALLED [facility] 3 TIMES. AWAITED TO GIVE REPORT FOR OVER 20MINS. NO RESPONSE.
--- NOTE | 2017-11-26 18:34 | NUR ---
MS RN: CLOSING NOTE PT READY FOR DISCHARGE TO [facility]. D/C IN PLACE. AWAITING AMBULANCE TRANSFER. ALL DISCHARGE INFORMATION PRINTED AND SIGNED. BP STABLE. BP 122/80. WILL ENDORSE TO NEXT SHIFT. A/OX3. TOOK ALL MEDICATIONS ON TIME. NO ADVERSE REACTIONS NOTED. NO SOB NOTED. ON 2L NC SATING AT 96%. BEDREST. LFA #22 IV HL. NO IV FLUIDS RUNNING. R CHEST HD CATH IN PLACE AND DRESSING INTACT. HD DONE 11/26/17 4L TAKEN OUT. RESTING COMFORTABLY IN BED. CALL LIGHT WITHIN REACH.
--- NOTE | 2017-11-26 19:24 | NUR ---
RT PT REFUSE MEDS NO RESP DISTRESS Addendum: 11/26/17 at 1925 by BENJAMIN FAULKNER RT Amended: Links added.
--- NOTE | 2017-11-26 19:30 | NUR ---
ms rn opening notes Received pt alert,awake,verbally responsive,on o2 via n/c at 2 l/min, no sob,no apparent distress noted. denies any pain or discomfort at this time. Report given regarding discharge to [facility], spoke to Mracus. pt denies any pain or discomfort.Attended all needs.Awaiting for the ambulance.Will continue to monitor.
[2017-11-26 20:00] VITALS: BP 110/60
[2017-11-26] MEDS: CEFEPIME 1 GM in IV D5W 50 ML IV SCH (20:16)
[2017-11-26 21:42] VITALS: BP 138/80
--- NOTE | 2017-11-26 21:45 | NUR ---
MS REPORT MANAGER NOTES PT ALERT,AWAKE,VERBALLY RESPONSIVE, ON O2 VIA N/C AT 2L/MIN, NO SOB,NO APPARENT DISTRESS NOTED.DENIES ANY PAIN OR DISCOMFORT AT THIS TIME. DISCHARGE INSTRUCTIONS GIVEN TO THE AMBULANCE, REGARDING THE TRANSFER. PT LEFT THE HOSPITAL IN STABLE CONDITION,ACCOMPANIED BY TWO AMBULANCE PERSONNEL NO RESPIRATORY DISTRESS NOTED. ATTENDED ALL PT NEEDS.CHARGE NURSE NOTIFIED.
== END 2017-11-26 21:45 | DRG 177 ==
LOC: ER 00:41 → TRANSITION 08:47 → TELE 11:41 → MED 11-19 10:44
PROVIDERS: ADMIT Internal Medicine; ATTEND Internal Medicine
PROC: 5A1D70Z Performance of Urinary Filtration, Intermittent, Less than 6 Hours Per Day (ICD-10-PCS; principal; 2017-11-19)
PROC: 5A1D70Z Performance of Urinary Filtration, Intermittent, Less than 6 Hours Per Day (ICD-10-PCS; 2017-11-21)
PROC: 5A1D70Z Performance of Urinary Filtration, Intermittent, Less than 6 Hours Per Day (ICD-10-PCS; 2017-11-22)
PROC: 5A1D70Z Performance of Urinary Filtration, Intermittent, Less than 6 Hours Per Day (ICD-10-PCS; 2017-11-24)
PROC: 5A1D70Z Performance of Urinary Filtration, Intermittent, Less than 6 Hours Per Day (ICD-10-PCS; 2017-11-26)
DX: J15.6 Pneumonia due to other Gram-negative bacteria (principal); J96.01 Acute respiratory failure with hypoxia; I13.2 Hypertensive heart and chronic kidney disease with heart failure and with stage 5 chronic kidney disease, or end stage renal disease; N18.6 End stage renal disease; I27.20 Pulmonary hypertension, unspecified; E11.22 Type 2 diabetes mellitus with diabetic chronic kidney disease; I50.32 Chronic diastolic (congestive) heart failure; Z88.1 Allergy status to other antibiotic agents; Z88.0 Allergy status to penicillin; E87.5 Hyperkalemia; I25.10 Atherosclerotic heart disease of native coronary artery without angina pectoris; I34.0 Nonrheumatic mitral (valve) insufficiency; Z99.2 Dependence on renal dialysis; F32.9 Major depressive disorder, single episode, unspecified; D64.9 Anemia, unspecified; J10.08 Influenza due to other identified influenza virus with other specified pneumonia; L98.9 Disorder of the skin and subcutaneous tissue, unspecified; J98.01 Acute bronchospasm; J09.X1 Influenza due to identified novel influenza A virus with pneumonia; Z79.899 Other long term (current) drug therapy
CPT/HCPCS: 31720; 36415; 36600; 71045-TC; 71250-TC; 80048-TC; 80202-TC; 81000-TC; 82803-TC; 83605-TC; 83735-TC; 83880; 84100-TC; 84484-TC; 85025-TC; 87040-TC; 87081-TC; 87086-TC; 87186-TC; 87400; 90935-TC; 93307-TC; 94799-TC; A4216; A4606; J0360; J0692; J1940; J1956; J2405; J2930; J3370; J3490; J7030; J7050; J7060; Z7610

== ENCOUNTER 2018-11-04 17:10 | Inpatient (IN) | payer MEDICARE, MEDICAID ==
[~2018-11-04] VITALS: Ht 182.9 cm; Wt 70.1 kg
[~2018-11-04 17:10] MED LIST: ASCO500C18 PO; BISA-79 PO; CALC300T4 PO; GABA-532 PO; LISI10TA59 PO; LOPE2CAP40 PO; NA P133E RC; NIFE60TA2 PO; PRED5DRO16 RIGHTEYE; VENL75TA4 PO; ZINC220T PO
--- NOTE | 2018-11-04 19:20 | NUR ---
DISTRIBUTION LINEMANENTRY LEVEL SALES ASSOCIATE NOTES Patient came to unit from [facility] via gurney. Alert, oriented x 4. Breathing even and unlabored. Not in any distress. Patient denies any pain. V/S taken- all WNL, tolerating room air on 96%. As per patient, he has glaucoma and is legally blind on both eyes. He is wheelchair bound. Patient is diabetic but does not take insulin at home. Patient has IV line on L) forearm g#18, intact and patent. HD catheter on RCW. Patient is following a MWF HD schedule. Home meds updated as per [facility]'s record. As per patient, he wants to update it but needs his caregiver to bring in the list. Patient called the caregiver but did not answer, left a message to bring the list in the morning. Skin assessment done. Skin dryness, multiple scabs and sacral and perineal area redness noted. Pictures attached to chart. MRSA swab done. Patient denies smoking, drinking and recreational drug use. He had a flu shot September 2018. Safety measures in place. Call plasencia within reach. Bed in low, locked position. Will monitor accordingly
[2018-11-04 19:30] VITALS: BP 132/80
--- NOTE | 2018-11-04 19:30 | NUR ---
FLAT LOCK OPERATOR NOTES Patient on tele monitor, current reading SR 70
[2018-11-04] MEDS ORDERED: DEXTROSE 50%-WATER 50 ML DISP.SYRIN IV PRN (21:00)
[2018-11-04] MEDS ORDERED: MAGNESIUM HYDROXIDE 30 ML UDC PO PRN (21:00)
[2018-11-04] MEDS ORDERED: Z GUARD REMEDY 2 OZ OINT TP PRN (21:00)
[2018-11-04] MEDS ORDERED: BISACODYL (5 MG) 5 MG TABLET.DR PO PRN (21:00)
[2018-11-04] MEDS ORDERED: HYDROCODONE/APAP 5/325MG 1 EACH TABLET PO PRN (21:00)
[2018-11-04] MEDS ORDERED: INSULIN REGULAR, HUMAN 100 UNIT/ML 3 ML VIAL SQ PRN (21:00)
[2018-11-04] MEDS: prednisoLONE ACET 1% OPHT DROP 5 ML BOTTLE RIGHTEYE SCH (21:00)
[2018-11-04] MEDS ORDERED: *INSULIN REGULAR(HUMULIN R)HUM 100 UNIT/ML VIAL SQ PRN (21:00)
[2018-11-04] MEDS ORDERED: MAG HYDROX/AL HYDROX/SIMETH 30 ML UDC PO PRN (21:00)
[2018-11-04] MEDS ORDERED: ZOLPIDEM TARTRATE 5 MG TABLET PO PRN (21:00)
[2018-11-04] MEDS ORDERED: ACETAMINOPHEN 325 MG TABLET PO PRN (21:00)
[2018-11-04] MEDS ORDERED: ONDANSETRON HCL/PF 4 MG/2 ML VIAL IVP PRN (21:00)
[2018-11-04 21:37] LABS: BASOPHILS % (AUTO) 0.9 % (0.0-2.0); EOSINOPHILS % (AUTO) 0.8 % (0.0-6.0); HEMATOCRIT 37 % (39-51); HEMOGLOBIN 12.1 g/dL (13.5-17.5); LYMPHOCYTES # (AUTO) 1.3 /CMM (0.8-4.8); LYMPHOCYTES % (AUTO) 24.7 % (20.0-44.0); MEAN CORPUSCULAR HGB CONC 33 g/dl (31.0-36.0); MEAN CORPUSCULAR VOLUME 98 fL (80-96); MONOCYTES # (AUTO) 0.6 /CMM (0.1-1.30); MONOCYTES % (AUTO) 10.8 % (2.0-12.0); NEUTROPHILS # (AUTO) 3.3 /CMM (1.8-8.9); NEUTROPHILS % (AUTO) 62.8 % (43.0-81.0); PLATELET COUNT (AUTO) 121 /CMM (150-450); RED BLOOD CELL COUNT(AUTO) 3.77 MIL/uL (4.5-6.0); WHITE BLOOD COUNT (AUTO) 5.3 K/uL (4.3-11.0)
[2018-11-04] MEDS: BLOOD SUGAR DIAGNOSTIC 1 EACH STRIP VI SCH (21:46)
[2018-11-04 21:52] LABS: ALBUMIN 2.8 g/dL (3.4-5.0); BILIRUBIN,TOTAL 0.6 mg/dL (0.2-1.0); CALCIUM, SERUM 7.5 mg/dL (8.5-10.1); CREATININE 3.8 mg/dL (0.6-1.3); MAGNESIUM 1.9 mg/dL (1.8-2.4); PHOSPHORUS 5.1 mg/dL (2.5-4.9); TOTAL PROTEIN, SERUM 5.5 g/dL (6.4-8.2)
[2018-11-04 22:00] LABS: THYROID STIMULATING HORMONE 2.392 uIU/mL (0.358-3.74)
[2018-11-04] MEDS ORDERED: HYDR100T27 PO (23:20)
[2018-11-04] MEDS ORDERED: ESCI20TA PO (23:20)
[2018-11-04] MEDS ORDERED: CLON0.1T14 PO (23:20)
[2018-11-04] MEDS ORDERED: TIZA4TAB4 PO (23:20)
[2018-11-04] MEDS ORDERED: MECL-102 PO (23:20)
[2018-11-05] VITALS (7 sets, daily range): BP systolic 93–172; BP diastolic 58–103
--- NOTE | 2018-11-05 02:43 | NUR ---
REFINERY PROCESS ENGINEER NOTES: RECEIVED PT FROM RN, RAEANN. PT ASLEEP AT THIS TIME. IV REMAINS INTACT. PT ALSO HAS HD CATH ON RCW AND IS INTACT. PT IS A/OX4. NO PAIN VERBALIZED. NO SOB NOTED. NO S/S OF DISTRESS. PT ON ROOM AIR AND TOLERATING WELL. PT LEGALLY BLIND WELL. PT ON TELE BOX AND READING SHOWS SR 68. BED ALARM ACTIVATED. BED KEPT IN LOW, LOCKED POSITION, AND SIDE RAILS X 2UP. AT THIS TIME, PT WOULD JUST LIKE HIS DOOR SHUT AND WOULD LIKE TO SLEEP. WILL CONTINUE TO MONITOR PT.
--- NOTE | 2018-11-05 02:55 | NUR ---
RN NOTES Patient in bed, sleeping. Breathing even and unlabored. . Not in any distress. Tele monitor in place, sinus rhythm 69. Safety measures in place. Endorsed to KISHA Hawkins for continuity of care
[2018-11-05] MEDS ORDERED: MECLIZINE HCL 25 MG TABLET PO PRN (04:00)
--- NOTE | 2018-11-05 06:07 | NUR ---
RN NOTES ACCUCHECK BG 71. NO ACTION NEEDED AT THIS TIME.
[2018-11-05] MEDS: BLOOD SUGAR DIAGNOSTIC 1 EACH STRIP VI SCH ×4 (06:21→21:49)
--- NOTE | 2018-11-05 06:50 | NUR ---
SHIFT MECHANIC CLOSING NOTES: ALL NEEDS WERE ATTENDED AND ANTICIPATED FOR. PT RESTING COMFORTABLY IN BED AT THIS TIME. BLOOD SUGAR THIS AM WAS 71. NO INSULIN WAS ADMINISTERED. IV REMAINS INTACT. HD CATH REMAINS INTACT. CURRENTLY H/L. PT ON TELE BOX AND READING SHOWS SR 68. NO SOB NOTED. NO S/S OF DISTRESS. PT ANTICIPATING BREAKFAST. BED KEPT IN LOW, LOCKED POSITION, AND SIDE RAILS X 2UP. WILL ENDORSE TO AM NURSE FOR RHETT.
--- NOTE | 2018-11-05 07:15 | NUR ---
TELE/RN OPENING NOTE THE PATIENT IS RECEIVED IN BED. ALERT AND ORIENTED X4. LEGALLY BLIND. TELE BOX READING SR 67. RESPIRATION REGULAR AND UNLABORED. IN ROOM AIR AND DENIES SOB. DENIES PAIN. THE PATIENT IN NO APPARENT DISTRESS. RIGHT CHEST WALL HD CATH INTACT. LEFT HAND G 18 PATENT AND SALINE LOCKED. BED LOW AND LOCKED. SIDE RAILS UP X3. CALL LIGHT WITHIN REACH. WILL CONTINUE TO MONITOR.
[2018-11-05 07:37] LABS: BASOPHILS % (AUTO) 0.6 % (0.0-2.0); EOSINOPHILS % (AUTO) 1.1 % (0.0-6.0); HEMATOCRIT 38 % (39-51); HEMOGLOBIN 12.5 g/dL (13.5-17.5); LYMPHOCYTES # (AUTO) 1.5 /CMM (0.8-4.8); LYMPHOCYTES % (AUTO) 24.5 % (20.0-44.0); MEAN CORPUSCULAR HGB CONC 33 g/dl (31.0-36.0); MEAN CORPUSCULAR VOLUME 97 fL (80-96); MONOCYTES # (AUTO) 0.6 /CMM (0.1-1.30); MONOCYTES % (AUTO) 10.2 % (2.0-12.0); NEUTROPHILS # (AUTO) 3.8 /CMM (1.8-8.9); NEUTROPHILS % (AUTO) 63.6 % (43.0-81.0); PLATELET COUNT (AUTO) 127 /CMM (150-450); RED BLOOD CELL COUNT(AUTO) 3.91 MIL/uL (4.5-6.0)
[2018-11-05 07:46] LABS: CALCIUM, SERUM 7.7 mg/dL (8.5-10.1); CREATININE 3.9 mg/dL (0.6-1.3); PHOSPHORUS 5.3 mg/dL (2.5-4.9)
[2018-11-05] MEDS: GABAPENTIN 100 MG CAPSULE PO SCH ×3 (09:27→16:16)
[2018-11-05] MEDS: TIZANIDINE HCL 4 MG TABLET PO SCH ×2 (09:28→16:16)
[2018-11-05] MEDS: LISINOPRIL (10MG) 10 MG TABLET PO SCH ×2 (09:28→17:00)
[2018-11-05] MEDS: prednisoLONE ACET 1% OPHT DROP 5 ML BOTTLE RIGHTEYE SCH ×4 (09:40→21:00)
[2018-11-05] MEDS: NIFEdipine XL 60 MG TAB PO SCH (10:09)
--- NOTE | 2018-11-05 12:10 | NUR ---
MS/RN NOTE BLOOD SUGAR 98. NO COVERAGE GIVEN. THE PATIENT IN STABLE CONDITION.
--- NOTE | 2018-11-05 12:10 | NUR ---
MS/RN NOTE BED BATH GIVEN. THE PATIENT IN STABLE CONDITION. PATIENT KEPT CLEAN, DRY AND COMFORTABLE.
--- NOTE | 2018-11-05 15:02 | NUR ---
MS/RN NOTE PATIENT SPOKE WITH KITCHEN PERSONAL REGARDING HIS MENU.
--- NOTE | 2018-11-05 15:39 | NUR ---
MS/RN NOTE ASSISTED THE PATIENT TO FILL OUT 11/05/18 DINNER AND 11/06/18 BREAKFAST, LUNCH AND DINNER MENUS. HANDED BOTH MENUS TO KITCHEN STAFF.
--- NOTE | 2018-11-05 17:17 | NUR ---
MS/RN NOTE THE PATIENT REFUSES BLOOD SUGAR CHECK DESPITE EXPLAINING RISKS AND BENEFITS. THE PATIENT SAYS " MY BLOOD SUGAR HAS BEEN NORMAL, THERE IS NO NEED TO CHECK ANYMORE."
--- NOTE | 2018-11-05 18:30 | NUR ---
MS/RN CLOSING NOTE THE PATIENT ALERT AND ORIENTED X4. DENIES SOB. IN ROOM AIR AND SATURATION AT 95%. RESPIRATION REGULAR AND UNLABORED. DENIES PAIN. PATIENT IN NO APPARENT DSITRESS. LEFT HAND G 18 PATENT AND SALINE LOCKED. RIGHT CHEST WALL HD CATH IN PLACE. GOOD AND GENTLE SKIN CARE RENDERED. ALL NEEDS ATTENDED. BED LOW AND LOCKED. SIDE RAILS UP X3. CALL LIGHT WITHIN REACH. WILL ENDORSE TO EVENT SPECIALIST.
--- NOTE | 2018-11-05 19:33 | NUR ---
MS/RN NOTE PER PATIENT`S REQUEST RECEIVED ORDER FROM DR STYLES TO CHANGE DIET ORDER FROM RENAL TO REGULAR. THE ORDER IS READ BACK, VERIFIED. NOTED AND CARRIED OUT. THE PATIENT IS MADE AWARE.
--- NOTE | 2018-11-05 20:16 | NUR ---
MS RN NOTE RECEIVED PT IN STABLE CONDITION A&O X4 WITH NO SOB OR DISTRESS. CURRENTLY RESTING IN BED WITH ALL NEEDS ATTENDED TO. SAFETY MEASURES IN PLACE: BED IN LOW/LOCKED POSITION WITH CALL LIGHT WITHIN REACH.
--- NOTE | 2018-11-05 21:50 | NUR ---
MS RN NOTE PATIENT REFUSED 2200 ACCUCHECK STATING THAT HIS BLOOD SUGARS HAVE BEEN LOW OR NORMAL AND THAT HE DOESN'T NEED IT. HE ALSO REFUSED THE PREDNISONE EYE DROPS FOR THE RIGHT EYE. STATING HE DOESN'T WANT IT. WILL CONT. TO MONITOR.
--- NOTE | 2018-11-05 22:45 | NUR ---
MS RN NOTE DIALYSIS FINISHED WITH PT IN STABLE CONDITION. TOLERATING WELL, NO SIGNS OF SOB OR DISTRESS. 1 LITER REMOVED STATED BY DIALYSIS NURSE. WILL CONT TO MONITOR.
--- NOTE | 2018-11-06 03:45 | NUR ---
MS RN NOTE PATIENT C/O OF DIARRHEA, WHEN CHANGED, NO LOOSE STOOLS NOTED. PT. REQUESTING FOR IMMODIUM. EXPLAINED TO PT THAT THERE IS NO NEED FOR IMMODIUM AT THE MOMENT. WILL CONT. TO MONITOR TO LOOSE STOOLS.
--- NOTE | 2018-11-06 06:25 | NUR ---
MS RN NOTE PT IN STABLE CONDITION A&O X4 WITH NO SOB OR DISTRESS. CURRENTLY RESTING IN BED WITH ALL NEEDS ATTENDED TO. SAFETY MEASURES IN PLACE: BED IN LOW/LOCKED POSITION WITH CALL LIGHT WITHIN REACH. WILL ENDORSE TO NEXT SHIFT.
[2018-11-06] MEDS: BLOOD SUGAR DIAGNOSTIC 1 EACH STRIP VI SCH ×2 (06:36→11:55)
--- NOTE | 2018-11-06 06:36 | NUR ---
MS RN NOTE PT REFUSED MORNING ACCUCHECK. STATING HE DOES NOT WANT TO BE BOTHERED. WILL ENDORSE TO NEXT SHIFT.
--- NOTE | 2018-11-06 07:30 | NUR ---
MS RN OPENING NOTES RECEIVED PATIENT IN STABLE CONDITION. IN NO APPARENT DISTRESS. BEDSIDE RAILS ARE UPX2. BED IS LOCKED AND LOWERED. CALL LIGHT IS WITHIN REACH. IV LINE IS INTACT AND PATENT. WILL CONTINUE TO MONITOR PATIENT.
[2018-11-06 08:00] VITALS: BP 152/100
--- NOTE | 2018-11-06 08:30 | NUR ---
CALLED PHARMACY TO PROVIDE PREDNISOLONE. PHARMACY WILL PROVIDE.
[2018-11-06] MEDS: prednisoLONE ACET 1% OPHT DROP 5 ML BOTTLE RIGHTEYE SCH ×2 (09:00→12:01)
[2018-11-06] MEDS: NIFEdipine XL 60 MG TAB PO SCH (09:00)
[2018-11-06 09:28] VITALS: BP 152/100
[2018-11-06] MEDS: GABAPENTIN 100 MG CAPSULE PO SCH ×2 (09:28→11:58)
[2018-11-06] MEDS: LISINOPRIL (10MG) 10 MG TABLET PO SCH (09:28)
[2018-11-06] MEDS: TIZANIDINE HCL 4 MG TABLET PO SCH (09:28)
--- NOTE | 2018-11-06 16:20 | NUR ---
MS RN CLOSING NOTES DISCHARGED PATIENT IN STABLE CONDITION. IN NO APPARENT DISTRESS. ALL NEEDS WERE MET. EXITCARE WAS SIGNED AND PROVIDED TO THE PATIENT. IV LINE WAS REMOVED. ID BAND WAS REMOVED. BELONGINGS WERE CHECKED AND GIVEN TO THE PATIENT. PATIENT WAS ESCORTED OUT OF THE FACILITY VIA GURNEY BY EMT.
== END 2018-11-06 16:15 | disposition home or self-care (01) | DRG 73 ==
LOC: TELE 19:11 → MED 11-05 09:55
PROVIDERS: ADMIT Internal Medicine; ATTEND Nurse Practitioner Acute Care
PROC: 5A1D70Z Performance of Urinary Filtration, Intermittent, Less than 6 Hours Per Day (ICD-10-PCS; principal; 2018-11-05)
DX: G90.8 Other disorders of autonomic nervous system (principal); N18.6 End stage renal disease; I13.2 Hypertensive heart and chronic kidney disease with heart failure and with stage 5 chronic kidney disease, or end stage renal disease; I50.32 Chronic diastolic (congestive) heart failure; E44.1 Mild protein-calorie malnutrition; J98.11 Atelectasis; I25.10 Atherosclerotic heart disease of native coronary artery without angina pectoris; H54.8 Legal blindness, as defined in USA; Z99.2 Dependence on renal dialysis; Z90.49 Acquired absence of other specified parts of digestive tract; E78.5 Hyperlipidemia, unspecified; Z79.899 Other long term (current) drug therapy; H40.9 Unspecified glaucoma; D63.8 Anemia in other chronic diseases classified elsewhere; E83.39 Other disorders of phosphorus metabolism
CPT/HCPCS: 36415; 71045-TC; 80048-TC; 80053-TC; 80061-TC; 82728-TC; 82962-TC; 83540-TC; 83735-TC; 84100-TC; 84443-TC; 84484-TC; 85025-TC; 85730-TC; 87081-TC; 90935-TC; 93307-TC; G0378; J1815